=== PATIENT | male | born 1945 | race African-American/Black ===

== ENCOUNTER 2022-06-28 12:07 | Emergency (ER) | payer MEDICARE ==
[~2022-06-28] VITALS: Ht 172.7 cm; Wt 95.0 kg
[2022-06-28 13:18] LABS: CLARITY URINE CLEAR (CLEAR); COLOR URINE YELLOW (YELLOW); KETONES URINE NEGATIVE (NEGATIVE); LEUKOCYTE ESTERASE URINE NEGATIVE (NEGATIVE); NITRITE URINE NEGATIVE (NEGATIVE); OCCULT BLOOD URINE NEGATIVE (NEGATIVE); PROTEIN URINE NEGATIVE (NEGATIVE); SPECIFIC GRAVITY URINE 1.018 (1.005-1.030)
[2022-06-28 13:22] LABS: CHLORIDE 101 mEq/L (98-107)
[2022-06-28 16:00] VITALS: BP 117/50
[2022-06-28 16:03] LABS: BASOPHILS % 0.5 % (0.0-2.0); EOSINOPHILS % 1.2 % (0.0-5.0); HEMATOCRIT. 32.9 % (42.0-52.0); HEMOGLOBIN. 10.5 g/dL (14.0-18.0); LYMPHOCYTES % 11.1 % (20.0-50.0); MEAN CORPUSCULAR HEMOGLOBIN 21.3 pg (28.0-32.0); MEAN CORPUSCULAR VOLUME 66.8 fL (80.0-94.0); MEAN PLATELET VOLUME 8.4 fl (7.4-10.4); MONOCYTES % 8.8 % (2.0-8.0); NEUTROPHILS % 78.4 % (40.0-76.0); PLATELET 271 x1000/uL (130-400); RED BLOOD CELL COUNT 4.92 mill/uL (4.7-6.1); RED CELL DISTRIBUTION WIDTH 20.2 % (11.6-14.6)
[2022-06-28 16:42] LABS: PLATELET ESTIMATE NORMAL
== END 2022-06-28 17:38 | disposition home or self-care (01) ==
LOC: ER 12:41
DX: R55 Syncope and collapse (principal); R53.1 Weakness; E11.9 Type 2 diabetes mellitus without complications
CPT/HCPCS: 36415; 71045; 80053; 81003; 83880; 84484; 85025; 93005; 99285

== ENCOUNTER 2022-10-07 11:35 | Inpatient (IN) | payer MEDICARE, OTHER ==
[~2022-10-07] VITALS: Ht 177.8 cm; Wt 89.0 kg
[2022-10-07 12:22] LABS: HEMATOCRIT. 23.5 % (42.0-52.0); HEMOGLOBIN. 7.5 g/dL (14.0-18.0); MEAN CORPUSCULAR VOLUME 69.5 fL (80.0-94.0); MEAN PLATELET VOLUME 7.1 fl (7.4-10.4); PLATELET 218 x1000/uL (130-400); RED BLOOD CELL COUNT 3.39 mill/uL (4.7-6.1); RED CELL DISTRIBUTION WIDTH 19.5 % (11.6-14.6)
[2022-10-07 12:23] LABS: CHLORIDE 94 mEq/L (98-107)
[2022-10-07 12:34] LABS: ETHANOL BLOOD < 10 mg/dL
[2022-10-07 12:47] LABS: PLATELET ESTIMATE NORMAL
[2022-10-07] MEDS ORDERED: VANCOMYCIN 1G PREMIX 200 ML IV NR (13:00)
[2022-10-07] MEDS ORDERED: PIPERACILLIN/TAZ 3.375G PREMIX 50 ML IV NR (13:00)
[2022-10-07] MEDS ORDERED: SODIUM CHLORIDE 0.9% 250 ML IV ONE (13:00)
[2022-10-07 13:13] LABS: INR 1.1; PARTIAL THROMBOPLASTIN TIME 28.5 sec (23.4-31.0); PROTHROMBIN TIME 11.6 sec (9.6-11.0)
[2022-10-07 14:03] LABS: HEMATOCRIT 23.5 % (42.0-52.0); HEMOGLOBIN 7.5 g/dL (14.0-18.0); MEAN CORPUSCULAR HEMOGLOBIN 22.2 pg (28.0-32.0); MEAN CORPUSCULAR VOLUME 69.2 fL (80.0-94.0); PLATELET 222 x1000/uL (130-400); RED BLOOD CELL COUNT 3.39 mill/uL (4.7-6.1); RED CELL DISTRIBUTION WIDTH 18.9 % (11.6-14.6)
[2022-10-07] MEDS ORDERED: DOCUSATE SODIUM 100MG CAPSULE PO PRN (15:45)
[2022-10-07] MEDS ORDERED: CLONIDINE 0.1MG TABLET PO PRN (15:45)
[2022-10-07] MEDS ORDERED: GUAIFENESIN 200MG/10ML SUGAR FREE UDC PO PRN (15:45)
[2022-10-07] MEDS ORDERED: IPRATROPIUM/ALBUTEROL 0.5-3(2.5)MG/3ML NEB HHN PRN (15:45)
[2022-10-07] MEDS ORDERED: NA PHOS,M-B/NA PHOS,DI-BA ENEMA 118ML PR PRN (15:45)
[2022-10-07] MEDS ORDERED: ONDANSETRON HCL 4MG/2ML INJ IV PRN (15:45)
[2022-10-07] MEDS ORDERED: ACETAMINOPHEN 325MG TABLET PO PRN ×2 (15:45)
[2022-10-07] MEDS ORDERED: IPRATROPIUM BROMIDE (0.02%) 0.5MG/2.5ML NEB HHN PRN (16:00)
[2022-10-07] MEDS ORDERED: ALBUTEROL (0.083%) 2.5MG/3ML NEB HHN PRN (16:00)
[2022-10-07] MEDS: EZETIMIBE 10MG TABLET PO SCH (17:41)
[2022-10-07] MEDS ORDERED: DEXTROSE 50% WATER 50ML SYRINGE IV PRN (17:45)
[2022-10-07 18:02] LABS: T4 FREE 2.07 ng/dL (0.76-1.46)
[2022-10-07 19:03] LABS: FERRITIN 1872 ng/mL (22-322)
[2022-10-07] MEDS: INSULIN LISPRO 100 UNITS/ML SUBCUT SCH ×2 (19:21→22:07)
[2022-10-07] MEDS ORDERED: FAMOTIDINE 20MG TABLET PO SCH (21:00)
[2022-10-07 21:33] LABS: VITAMIN B12 SERUM 756 pg/mL (211-911)
[2022-10-07] MEDS: BLOOD SUGAR DIAGNOSTIC STRIP TEST SCH (22:07)
[2022-10-08] VITALS (13 sets, daily range): BP systolic 93–125; BP diastolic 26–78
[2022-10-08 06:12] LABS: HEMATOCRIT. 28.2 % (42.0-52.0); HEMOGLOBIN. 9.3 g/dL (14.0-18.0); MEAN CORPUSCULAR HEMOGLOBIN 23.6 pg (28.0-32.0); MEAN CORPUSCULAR VOLUME 71.6 fL (80.0-94.0); MEAN PLATELET VOLUME 7.3 fl (7.4-10.4); PLATELET 231 x1000/uL (130-400); RED BLOOD CELL COUNT 3.93 mill/uL (4.7-6.1); RED CELL DISTRIBUTION WIDTH 21.4 % (11.6-14.6)
[2022-10-08] MEDS: INSULIN LISPRO 100 UNITS/ML SUBCUT SCH ×4 (07:20→20:38)
[2022-10-08] MEDS: BLOOD SUGAR DIAGNOSTIC STRIP TEST SCH ×4 (07:44→20:35)
[2022-10-08] MEDS: EZETIMIBE 10MG TABLET PO SCH (08:05)
[2022-10-08 10:45] LABS: PLATELET ESTIMATE NORMAL
[2022-10-08 15:08] LABS: HEPATITIS B SURFACE ANTIGEN NEGATIVE
[2022-10-08] MEDS: SUCRALFATE 1G TABLET PO SCH ×2 (16:50→20:32)
[2022-10-08] MEDS: OMEPRAZOLE 20MG CAPSULE EXTENDED RELEASE PO SCH (20:33)
[2022-10-09] VITALS: BP 119/66
[2022-10-09 04:00] VITALS: BP 114/61
[2022-10-09 05:57] LABS: HEMATOCRIT. 25.8 % (42.0-52.0); HEMOGLOBIN. 8.5 g/dL (14.0-18.0); MEAN CORPUSCULAR HEMOGLOBIN 23.9 pg (28.0-32.0); MEAN CORPUSCULAR VOLUME 72.2 fL (80.0-94.0); RED BLOOD CELL COUNT 3.57 mill/uL (4.7-6.1); RED CELL DISTRIBUTION WIDTH 21.4 % (11.6-14.6)
[2022-10-09 06:26] LABS: PHOSPHORUS 2.3 mg/dL (2.5-4.9)
[2022-10-09] MEDS: SUCRALFATE 1G TABLET PO SCH ×2 (06:36→12:55)
[2022-10-09] MEDS: OMEPRAZOLE 20MG CAPSULE EXTENDED RELEASE PO SCH (06:36)
[2022-10-09] MEDS: BLOOD SUGAR DIAGNOSTIC STRIP TEST SCH ×2 (06:36→11:50)
[2022-10-09] MEDS: INSULIN LISPRO 100 UNITS/ML SUBCUT SCH ×2 (06:37→12:08)
[2022-10-09] MEDS ORDERED: CALC667T6 MT (07:43)
[2022-10-09] MEDS ORDERED: TICA90TA PO (07:43)
[2022-10-09] MEDS ORDERED: METO-411 MT (07:43)
[2022-10-09] MEDS ORDERED: EZET10TA13 PO (07:43)
[2022-10-09] MEDS ORDERED: CHOL400D7 PO (07:43)
[2022-10-09] MEDS ORDERED: ASPI-1497 MT (07:43)
[2022-10-09] MEDS ORDERED: AMI2 PO (07:43)
[2022-10-09 08:00] VITALS: BP 116/71
[2022-10-09 08:30] LABS: PLATELET 262 x1000/uL (130-400)
[2022-10-09] MEDS: EZETIMIBE 10MG TABLET PO SCH (08:30)
[2022-10-09 08:42] LABS: PLATELET ESTIMATE NORMAL
[2022-10-09 12:07] VITALS: BP 110/57
[2022-10-09 12:19] VITALS: BP 110/57
== END 2022-10-09 16:00 | disposition home or self-care (01) | DRG 280 ==
LOC: ER 11:35 → EDBEDREQTM 13:16 → EDBEDREQ 13:16 → 3WST 23:56
PROVIDERS: ADMIT Hospitalist; ATTEND Hospitalist
PROC: 30233N1 Transfusion of Nonautologous Red Blood Cells into Peripheral Vein, Percutaneous Approach (ICD-10-PCS; principal; 2022-10-07)
PROC: 4A00X4Z Measurement of Central Nervous Electrical Activity, External Approach (ICD-10-PCS; 2022-10-09)
DX: I95.9 Hypotension, unspecified (principal); I21.A1 Myocardial infarction type 2; K57.31 Diverticulosis of large intestine without perforation or abscess with bleeding; N18.6 End stage renal disease; I13.2 Hypertensive heart and chronic kidney disease with heart failure and with stage 5 chronic kidney disease, or end stage renal disease; E46 Unspecified protein-calorie malnutrition; E87.20 Acidosis, unspecified; I50.22 Chronic systolic (congestive) heart failure; R55 Syncope and collapse; C61 Malignant neoplasm of prostate; D50.9 Iron deficiency anemia, unspecified; E11.22 Type 2 diabetes mellitus with diabetic chronic kidney disease; D72.819 Decreased white blood cell count, unspecified; E78.5 Hyperlipidemia, unspecified; I65.21 Occlusion and stenosis of right carotid artery; I25.10 Atherosclerotic heart disease of native coronary artery without angina pectoris; I07.1 Rheumatic tricuspid insufficiency; I25.5 Ischemic cardiomyopathy; Z68.28 Body mass index [BMI] 28.0-28.9, adult; Z79.899 Other long term (current) drug therapy; Z88.8 Allergy status to other drugs, medicaments and biological substances; Z86.74 Personal history of sudden cardiac arrest; Z86.79 Personal history of other diseases of the circulatory system; Z99.2 Dependence on renal dialysis; Z95.5 Presence of coronary angioplasty implant and graft; Z95.810 Presence of automatic (implantable) cardiac defibrillator; Z86.73 Personal history of transient ischemic attack (TIA), and cerebral infarction without residual deficits; Z79.4 Long term (current) use of insulin; Z95.1 Presence of aortocoronary bypass graft
CPT/HCPCS: 36415; 71045; 74176; 80048; 80053; 80061; 80320; 82270; 82607; 82728; 82746; 82962; 83036; 83540; 83550; 83605; 83735; 83880; 84100; 84145; 84153; 84439; 84443; 84484; 85025; 85027; 85379; 86705; 86709; 86803; 86850; 86900; 86920; 87340; 87426; 87804; 93005; 93306; 93880; 93970; 94660; 95816; 97162; 97166; 99291; C9803; J2543; J3370; P9016; G0103; G0480

== ENCOUNTER → 2023-09-30 | Outpatient (CLI) | payer MEDICARE, OTHER ==
[~2023-09-30] MED LIST: AMI2 PO; CALC667T6 MT; CHOL400D7 PO; EZET10TA81 PO
== END | disposition home or self-care (01) ==
LOC: RAD 13:46
PROVIDERS: ATTEND Internal Medicine Clinical Cardiac Electrophysiology
DX: I51.7 Cardiomegaly (principal); I50.22 Chronic systolic (congestive) heart failure; I47.20 Ventricular tachycardia, unspecified; Z95.1 Presence of aortocoronary bypass graft
CPT/HCPCS: 71045

== ENCOUNTER → 2024-09-28 | Outpatient (CLI) | payer MEDICARE, OTHER ==
[~2024-09-28] MED LIST changes: +ALBU18HF2 IH; +ALIR75PE5 SQ; +AMMO140C2 TOP; +ASPI-1497 PO; +ATROV3 BOTHNSTRLS; +BENZ100C86 PO; -CALC667T6 MT; +CALC667T6 PO; +CAPS60CR3 TP; +CARB10DR EACHEYE; +CLOP75TA33 PO; +DEXT2TAB3 PO; +FLUT15.844 BOTHNSTRLS; +FOLI1TAB33 MT; +LIDO5CRE26 TP; +METO-385 PO; +NITR0.4T49 SL
== END | disposition home or self-care (01) ==
LOC: RAD 14:45 → LAB 14:45
PROVIDERS: ATTEND Internal Medicine Clinical Cardiac Electrophysiology
DX: I51.7 Cardiomegaly (principal); I50.22 Chronic systolic (congestive) heart failure; I25.5 Ischemic cardiomyopathy; Z95.810 Presence of automatic (implantable) cardiac defibrillator
CPT/HCPCS: 71045

== ENCOUNTER 2025-08-08 09:47 | Emergency (ER) | payer MEDICARE, OTHER ==
[~2025-08-08] VITALS: Ht 172.7 cm; Wt 95.0 kg
[2025-08-08 11:13] VITALS: BP 0/0; PULSE 0; RESP 0; O2SAT 0
[2025-08-08] MEDS ORDERED: MAGNESIUM SULFATE 4G IN WATER 100ML PREMIX IV ONE (13:44)
[2025-08-08] MEDS ORDERED: CALCIUM CHLORIDE 1GM/10ML SYR IV ONE (13:44)
[2025-08-08] MEDS ORDERED: EPINEPHRINE 0.1MG/ML (1:10,000) 10ML SYR ONE (13:44)
[2025-08-08] MEDS ORDERED: ATROPINE SULFATE 1MG/10ML SYR ONE (13:44)
[2025-08-08] MEDS ORDERED: NALOXONE HCL 1MG/ML 2ML VIAL ONE (13:44)
[2025-08-08] MEDS ORDERED: DEXTROSE 50% WATER 50ML SYRINGE IV ONE (13:44)
[2025-08-08] MEDS ORDERED: SODIUM BICARBONATE 8.4% 50MEQ/50ML SYR IV ONE (13:44)
[2025-08-08] MEDS ORDERED: ETOMIDATE 2MG/ML 10ML VIAL IV ONE (14:09)
[2025-08-08] MEDS ORDERED: ROCURONIUM BROMIDE 10MG/ML VIAL 5ML IV ONE (14:09)
== END 2025-08-08 10:09 ==
LOC: ER 09:47
DX: I46.9 Cardiac arrest, cause unspecified (principal); E11.9 Type 2 diabetes mellitus without complications; I11.0 Hypertensive heart disease with heart failure; I50.9 Heart failure, unspecified; Z79.02 Long term (current) use of antithrombotics/antiplatelets; Z79.82 Long term (current) use of aspirin; Z88.8 Allergy status to other drugs, medicaments and biological substances; Z79.899 Other long term (current) drug therapy
CPT/HCPCS: 82962; 31500; 99285; J0461; J3490 ×5; J3475; J2312; 94070; 94664